=== PATIENT | male | born 1935 | race Caucasian/White ===

== ENCOUNTER 2023-07-25 15:33 | Outpatient (RCR) | payer MEDICARE, SELFPAY | END 2023-08-04 11:13 | disposition home or self-care (01) | LOC: PT 15:33 | PROVIDERS: PCP Physician Assistant; Visit Provider Physician Assistant | DX: M75.101 Unspecified rotator cuff tear or rupture of right shoulder, not specified as traumatic (principal); M25.511 Pain in right shoulder | CPT/HCPCS: 97110; 97161 ==